=== PATIENT | male | born 1975 | race Caucasian/White ===

== ENCOUNTER 2017-05-23 07:06 | Emergency (ER) | payer OTHER ==
[~2017-05-23] VITALS: Ht 162.6 cm; Wt 79.4 kg
[~2017-05-23 07:06] MED LIST: HYDR-548 PO; MORP30TA59 PO
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
--- NOTE | 2017-05-23 07:17 | NUR ---
DR HUNT AT BEDSIDE FOR EVAL.
--- NOTE | 2017-05-23 07:36 | NUR ---
XRAY IN PROGRESS AT BS.
[2017-05-23 08:28] VITALS: BP 135/92
--- NOTE | 2017-05-23 08:28 | NUR ---
Patient discharged to home in stable condition. Written and verbal after care instructions given. Patient verbalizes understanding of instruction.
== END 2017-05-23 08:29 | disposition home or self-care (01) ==
LOC: ER 07:08
DX: S60.222A Contusion of left hand, initial encounter (principal); G89.29 Other chronic pain; M54.9 Dorsalgia, unspecified; K21.9 Gastro-esophageal reflux disease without esophagitis; F17.200 Nicotine dependence, unspecified, uncomplicated; W22.8XXA Striking against or struck by other objects, initial encounter; Y93.71 Activity, boxing; Y92.89 Other specified places as the place of occurrence of the external cause; Y99.9 Unspecified external cause status
CPT/HCPCS: 73130-TC; A4606; Z7610

== ENCOUNTER 2022-01-06 21:09 | Emergency (ER) | payer OTHER ==
[~2022-01-06] VITALS: Ht 165.1 cm; Wt 90.7 kg
[~2022-01-06 21:09] MED LIST changes: +HYDR-4354 PO; -HYDR-548 PO
[2022-01-06 21:32] VITALS: BP 155/87
[2022-01-06] MEDS ORDERED: IBUPROFEN 600 MG TABLET ONE (22:00)
[2022-01-06] MEDS: IBUPROFEN 600 MG TABLET PO ONE (22:02)
[2022-01-06] MEDS ORDERED: HYDR-4209 PO (22:18)
[2022-01-06] MEDS ORDERED: ONDANSETRON 4 MG TAB.RAPDIS ONE (22:26)
[2022-01-06] MEDS ORDERED: HYDROMORPHONE INJ 2 MG/ML DISP.SYRIN ONE (22:26)
[2022-01-06] MEDS: ONDANSETRON 4 MG TAB.RAPDIS SL ONE (22:35)
[2022-01-06] MEDS: HYDROMORPHONE INJ 2 MG/ML DISP.SYRIN IM ONE (22:35)
--- NOTE | 2022-01-06 22:36 | NUR ---
Patient discharged to home in stable condition. Written and verbal after care instructions given. Patient verbalizes understanding of instruction. Pt ambulatory with an aide of crutches.
== END 2022-01-06 22:37 | disposition home or self-care (01) ==
LOC: ER 21:13
DX: S92.424A Nondisplaced fracture of distal phalanx of right great toe, initial encounter for closed fracture (principal); M79.674 Pain in right toe(s); K21.9 Gastro-esophageal reflux disease without esophagitis; G89.29 Other chronic pain; M54.9 Dorsalgia, unspecified; F17.200 Nicotine dependence, unspecified, uncomplicated; Z79.891 Long term (current) use of opiate analgesic; W22.8XXA Striking against or struck by other objects, initial encounter; Y93.89 Activity, other specified; Y92.009 Unspecified place in unspecified non-institutional (private) residence as the place of occurrence of the external cause; Y99.8 Other external cause status
CPT/HCPCS: 73630; 96372; 99283; J1170; Q0162

== ENCOUNTER 2024-10-17 19:21 | Emergency (ER) | payer OTHER ==
[~2024-10-17] VITALS: Ht 172.7 cm; Wt 117.9 kg
[~2024-10-17 19:21] MED LIST changes: +HYDR-4209 PO
[2024-10-17 20:30] LABS: BASOPHILS % (AUTO) 0.3 % (0.0-2.0); EOSINOPHILS # (AUTO) 0.1 K/uL (0.0-0.7); HEMATOCRIT 38 % (39-51); HEMOGLOBIN 12.5 g/dL (13.5-17.5); LYMPHOCYTES % (AUTO) 11.1 % (20.0-44.0); MEAN CORPUSCULAR HEMOGLOBIN 32 PG (26.0-33.0); MEAN CORPUSCULAR HGB CONC 33 g/dl (31.0-36.0); MEAN CORPUSCULAR VOLUME 97 fL (80-96); NEUTROPHILS # (AUTO) 6.6 K/uL (1.8-8.9); NEUTROPHILS % (AUTO) 76.6 % (43.0-81.0); PLATELET COUNT (AUTO) 322 K/uL (150-450); RED CELL DISTRIBUTION WIDTH 14.4 % (11.5-15.0); WHITE BLOOD COUNT (AUTO) 8.7 K/uL (4.3-11.0)
[2024-10-17 20:35] LABS: CALCIUM, SERUM 9.5 mg/dL (8.5-10.1); CREATININE 1.1 mg/dL (0.6-1.3); POTASSIUM 4.4 mmol/L (3.5-5.1)
[2024-10-17 20:40] LABS: BILIRUBIN,DIRECT 0.2 mg/dL (0.0-0.2); BILIRUBIN,TOTAL 0.5 mg/dL (0.2-1.0); TOTAL PROTEIN, SERUM 7.9 g/dL (6.4-8.2)
[2024-10-17] MEDS ORDERED: ONDANSETRON HCL/PF 4 MG/2 ML VIAL ONE (20:42)
[2024-10-17] MEDS ORDERED: HYDROMORPHONE 1 MG/1 ML DISP.SYRIN ONE (20:42)
[2024-10-17] MEDS: HYDROMORPHONE INJ 2 MG/ML DISP.SYRIN IV ONE (20:43)
[2024-10-17] MEDS: IV NS 0.9% 1,000 ML BAG IV ONE (20:43)
[2024-10-17] MEDS: ONDANSETRON HCL/PF 4 MG/2 ML VIAL IVP ONE (20:43)
[2024-10-17] MEDS ORDERED: AMOX-430 PO (21:39)
[2024-10-17] MEDS ORDERED: METH-647 PO (21:39)
[2024-10-17] MEDS ORDERED: HYDR-4209 PO (21:39)
[2024-10-17] MEDS ORDERED: KETOROLAC TROMETHAMINE INJ 60 MG/2 ML VIAL IM ONE (21:53)
[2024-10-17] MEDS: KETOROLAC TROMETHAMINE INJ 60 MG/2 ML VIAL IM ONE (21:59)
[2024-10-18 00:05] VITALS: BP 132/88; TEMP 98.2; O2SAT 98
== END 2024-10-18 00:06 | disposition home or self-care (01) ==
LOC: ER 20:03
DX: R10.32 Left lower quadrant pain (principal); M25.569 Pain in unspecified knee; G89.29 Other chronic pain; M54.9 Dorsalgia, unspecified; E66.9 Obesity, unspecified; F17.200 Nicotine dependence, unspecified, uncomplicated; K21.9 Gastro-esophageal reflux disease without esophagitis; Z68.39 Body mass index [BMI] 39.0-39.9, adult
CPT/HCPCS: 99285; 74176; 96374; 96361; 96375; 85025; 80048; 83690; 80076; 36415; 96372; J1885; J2405; J7030; J1171

== ENCOUNTER 2025-03-18 09:30 | Emergency (ER) | payer OTHER ==
[~2025-03-18] VITALS: Ht 165.1 cm; Wt 124.7 kg
[~2025-03-18 09:30] MED LIST changes: +AMOX-430 PO; +METH-647 PO
[2025-03-18 09:46] VITALS: BP 155/95; TEMP 97.9; O2SAT 100
[2025-03-18] MEDS ORDERED: CEPH-570 PO (12:06)
== END 2025-03-18 12:20 | disposition home or self-care (01) ==
LOC: ER 09:32
DX: L72.3 Sebaceous cyst (principal); F17.200 Nicotine dependence, unspecified, uncomplicated; G89.29 Other chronic pain; Z79.899 Other long term (current) drug therapy
CPT/HCPCS: 76870-TC

== ENCOUNTER 2025-03-18 21:02 | Emergency (ER) | payer OTHER ==
[~2025-03-18 21:02] MED LIST changes: +CEPH-570 PO
== END 2025-03-18 23:15 | disposition left against medical advice (07) ==
LOC: ER 22:24
DX: Z53.21 Procedure and treatment not carried out due to patient leaving prior to being seen by health care provider (principal)